=== PATIENT | male | born 1995 | race Caucasian/White ===

== ENCOUNTER 2020-10-01 20:14 | Emergency (ER) | payer MEDICAID ==
[~2020-10-01] VITALS: Ht 165.1 cm; Wt 61.2 kg
[2020-10-01 20:15] VITALS: BP_SYST 141
[2020-10-01] MEDS ORDERED: NACL 0.9% 1,000 ML IV ONE (20:30)
[2020-10-01 20:38] LABS: BASOPHILS # (AUTO) 0.2 K/uL (0.0-0.2); EOSINOPHILS # (AUTO) 0.1 K/uL (0.0-0.4); HEMATOCRIT 42.8 % (36-54); HEMOGLOBIN 14.8 g/dL (14.0-18.0); LYMPHOCYTES # (AUTO) 1.9 K/uL (1.0-5.5); LYMPHOCYTES % (AUTO) 20.7 % (20.5-51.5); MEAN CORPUSCULAR HEMOGLOBIN 31 pg (27-31); MEAN CORPUSCULAR HGB CONC 35 % (32-36); MEAN CORPUSCULAR VOLUME 90 fL (79.0-98.0); MONOCYTES # (AUTO) 0.3 K/uL (0.0-1.0); MONOCYTES % (AUTO) 3.8 % (1.7-9.3); NEUTROPHILS # (AUTO) 6.7 K/uL (1.8-7.7); NEUTROPHILS % (AUTO) 72.5 % (40.0-70.0); PLATELET COUNT (AUTO) 291 K/uL (130-430); RED BLOOD CELL COUNT(AUTO) 4.74 MIL/uL (4.2-6.2); RED CELL DISTRIBUTION WIDTH 13.8 % (9.0-15.0); WHITE BLOOD COUNT (AUTO) 9.2 K/uL (4.8-10.8)
[2020-10-01 20:45] LABS: CREATININE 1.16 mg/dL (0.55-1.30); POTASSIUM 3.7 mmol/L (3.5-5.1)
[2020-10-01 20:56] LABS: ALBUMIN 4.1 g/dL (3.4-4.8); TOTAL BILIRUBIN 0.3 mg/dL (0.0-1.0)
[2020-10-01 21:19] LABS: BARBITURATE, URINE NEGATIVE (NEG <=200); URINE AMPHETAMINE POSITIVE (NEG <=500)
[2020-10-01 21:20] LABS: BENZODIAZEPINE, URINE NEGATIVE (NEG <=150); CANNABINOID, URINE NEGATIVE (NEG <=50); COCAINE, URINE NEGATIVE (NEG <=150); METHAMPHETAMINES SCREEN,URINE POSITIVE (NEG <=500); OPIATE, URINE POSITIVE (NEG <=100); PHENCYCLIDINE SCREEN,URINE NEGATIVE (NEG <=25); UR TRICYCLIC ANTIDEPRESSANTS NEGATIVE (NEG <=300); URINE METHADONE NEGATIVE (NEG <=200); URINE OXYCODONE SCREEN NEGATIVE (NEG <=100); URINE PROPOXYPHENE SCREEN NEGATIVE (NEG <=300)
[2020-10-01 21:43] VITALS: BP_SYST 141
== END 2020-10-01 21:45 | disposition home or self-care (01) ==
LOC: SED 20:14
DX: F19.10 Other psychoactive substance abuse, uncomplicated (principal); F11.90 Opioid use, unspecified, uncomplicated; F15.90 Other stimulant use, unspecified, uncomplicated
CPT/HCPCS: 36415; 80053; 80307; 85025; 99283

== ENCOUNTER 2021-03-15 23:27 | Emergency (ER) | payer MEDICAID ==
[~2021-03-15] VITALS: Ht 175.3 cm; Wt 63.5 kg
[2021-03-15 23:39] VITALS: BP_SYST 137
[2021-03-16] MEDS ORDERED: NACL 0.9% 2,000 ML IV ONE (01:15)
[2021-03-16 01:39] LABS: BASOPHILS % (AUTO) 0.4 % (0.0-2.0); EOSINOPHILS # (AUTO) 0.1 K/uL (0.0-0.4); EOSINOPHILS % (AUTO) 1.5 % (0.0-4.0); HEMATOCRIT 38.5 % (36-54); HEMOGLOBIN 13.1 g/dL (14.0-18.0); LYMPHOCYTES # (AUTO) 1.8 K/uL (1.0-5.5); LYMPHOCYTES % (AUTO) 28.4 % (20.5-51.5); MEAN CORPUSCULAR HEMOGLOBIN 31 pg (27-31); MEAN CORPUSCULAR HGB CONC 34 % (32-36); MEAN CORPUSCULAR VOLUME 91 fL (79.0-98.0); MONOCYTES # (AUTO) 0.4 K/uL (0.0-1.0); MONOCYTES % (AUTO) 6.4 % (1.7-9.3); NEUTROPHILS % (AUTO) 63.3 % (40.0-70.0); PLATELET COUNT (AUTO) 225 K/uL (130-430); RED BLOOD CELL COUNT(AUTO) 4.22 MIL/uL (4.2-6.2); RED CELL DISTRIBUTION WIDTH 13.9 % (9.0-15.0); WHITE BLOOD COUNT (AUTO) 6.3 K/uL (4.8-10.8)
[2021-03-16 01:51] LABS: ANION GAP 5 (5-15); CALCIUM 8.7 mg/dL (8.4-11.0); CHLORIDE 103 mmol/L (98-107); CREATININE 0.95 mg/dL (0.55-1.30); GLUCOSE 132 mg/dL (70-99); SODIUM SERUM 138 mmol/L (136-145); UREA NITROGEN, BLOOD 13 mg/dL (8-21)
[2021-03-16 01:53] LABS: GFR AFRICAN AMERICAN 122 mL/min (>90); PROTHROMBIN TIME 10.9 SECS (9.5-12.5)
[2021-03-16 01:57] LABS: ALANINE AMINOTRANSFERASE 83 U/L (12-78); ALBUMIN 3.6 g/dL (3.4-4.8); ASPARTATE AMINOTRANSFERASE 33 U/L (10-37); TOTAL BILIRUBIN 0.2 mg/dL (0.0-1.0)
[2021-03-16 02:00] LABS: ALCOHOL, BLOOD < 3 mg/dL (<10)
[2021-03-16 03:30] LABS: BILIRUBIN,URINE NEGATIVE (NEGATIVE); BLOOD, URINE NEGATIVE (NEGATIVE); CLARITY/URINE CLOUDY (CLEAR); COLOR,URINE YELLOW (YELLOW); GLUCOSE,URINE NEGATIVE (NEGATIVE); KETONES,URINE NEGATIVE (NEGATIVE); LEUKOCYTE ESTERASE ,URINE NEGATIVE (NEGATIVE); NITRITE, URINE NEGATIVE (NEGATIVE); PROTEIN URINE NEGATIVE (NEGATIVE); UROBILINOGEN,URINE 0.2 (0.2-1.0)
[2021-03-16] MEDS ORDERED: NALO4SPR NS (03:32)
[2021-03-16 03:45] LABS: BARBITURATE, URINE POSITIVE (NEG <=200); BENZODIAZEPINE, URINE POSITIVE (NEG <=150); CANNABINOID, URINE POSITIVE (NEG <=50); COCAINE, URINE NEGATIVE (NEG <=150); METHAMPHETAMINES SCREEN,URINE POSITIVE (NEG <=500); OPIATE, URINE POSITIVE (NEG <=100); PHENCYCLIDINE SCREEN,URINE NEGATIVE (NEG <=25); UR TRICYCLIC ANTIDEPRESSANTS NEGATIVE (NEG <=300); URINE AMPHETAMINE POSITIVE (NEG <=500); URINE METHADONE NEGATIVE (NEG <=200); URINE OXYCODONE SCREEN NEGATIVE (NEG <=100); URINE PROPOXYPHENE SCREEN NEGATIVE (NEG <=300)
[2021-03-16] MEDS ORDERED: IBUPROFEN 600 MG TABLET PO ONE (03:45)
[2021-03-16 03:51] VITALS: BP_SYST 137
== END 2021-03-16 03:51 | disposition home or self-care (01) ==
LOC: SED 23:27
DX: F11.221 Opioid dependence with intoxication delirium (principal); F12.20 Cannabis dependence, uncomplicated; F15.20 Other stimulant dependence, uncomplicated; E86.0 Dehydration; Z88.5 Allergy status to narcotic agent; Z79.899 Other long term (current) drug therapy
CPT/HCPCS: 36415; 70450; 71045; 76376; 80053; 80307; 81003; 84484; 85025; 85610; 93005; 96360; 99291; G0482; J7030; 99285